=== PATIENT | male | born 1975 | race Caucasian/White ===

== ENCOUNTER 2017-01-09 09:37 | Emergency (ER) | payer OTHER ==
[2017-01-09] MEDS ORDERED: KETOROLAC 60 MG/2 ML VIAL IVP STA (11:40)
[2017-01-09] MEDS ORDERED: cefTRIAXone 1 GM in SODIUM CHLORIDE 0.9% MINIBAG 100 ML IV STA (11:40)
[2017-01-09] MEDS ORDERED: SODIUM CHLORIDE 0.9% 1,000 ML IV ONE (11:40)
[2017-01-09] MEDS ORDERED: cefTRIAXone 1 GM VIAL ONE (11:51)
[2017-01-09] MEDS ORDERED: KETOROLAC 30 MG/ML VIAL ONE (11:51)
== END 2017-01-09 13:09 | disposition home or self-care (01) ==
DX: N39.0 Urinary tract infection, site not specified (principal); M79.1 Myalgia